=== PATIENT | female | born 1935 | race Caucasian/White ===

== ENCOUNTER 2018-09-28 19:10 | Inpatient (IN) | payer MEDICARE, MEDICAID ==
[~2018-09-28] VITALS: Ht 162.6 cm; Wt 34.0 kg
[2018-09-28 20:09] LABS: HEMATOCRIT 24.2 % (36.0-48.0); HEMOGLOBIN 7.8 g/dL (12-16); MCH 32.1 pg (26.0-34.0); MCHC 32.2 g/dL (31.0-37.0); MCV 99.6 fL (80.0-100.0); MEAN PLATELET VOLUME 10.1 fL (7.4-10.4); RBC 2.43 10x6/uL (4.00-5.40)
[2018-09-28 20:11] LABS: PLATELET COUNT 154 10x3/uL (130-400); WBC 1.2 10x3/uL (4.8-10.8)
--- NOTE | 2018-09-28 20:11 | NUR ---
CRITICAL LAB WBC - 1.2. ERP INFORMED
[2018-09-28 20:25] LABS: INR 1.15 (0.85-1.17); PROTIME 14.2 SECONDS (11.6-15.0)
[2018-09-28 20:26] LABS: APTT 41.1 SECONDS (22.8-39.4)
[2018-09-28 20:33] LABS: ALKALINE PHOSPHATASE 118 U/L (46-116); ALT (SGPT) 13 U/L (10-68); BILIRUBIN - TOTAL 0.53 mg/dL (0.2-1.3); CALC OSMOLALITY 290 mosm/kg (275-300); CALCIUM 8.6 mg/dL (8.5-10.1); CARBON DIOXIDE 25.3 mmol/L (21.0-32.0); CHLORIDE - SERUM 104 mmol/L (98-107); CREATININE - SERUM 1.2 mg/dL (0.6-1.3); GLUCOSE 119 mg/dL (74-106); POTASSIUM - SERUM 3.4 mmol/L (3.5-5.1); PROTEIN - SERUM 6.5 g/dL (6.4-8.2); SODIUM 142 mmol/L (136-145); UREA NITROGEN 33 mg/dL (7-18); eGFR NON AFRICAN AMERICAN 46 mL/min (90-120)
[2018-09-28 20:34] LABS: LYMPHOCYTES 14 % (15-50); MONOCYTES 20 % (2-11); NEUTROPHILS 66 % (40-80); PLATELET ESTIMATE NORMAL; POLYCHROMASIA OCC
[2018-09-28 20:35] LABS: POIKILOCYTOSIS 1+; ROULEAUX 1+; TEAR DROP CELLS OCC
[2018-09-28 20:49] LABS: CKMB 0.9 U/L (0.0-3.6); CREATINE KINASE 27 UL (21-215); LIPASE 96 U/L (73-393); PRO BNP 5371 pg/mL (0-450); THYROID STIMULATING HORMONE 0.49 uIU/mL (0.36-3.74)
[2018-09-28 20:54] LABS: TROPONIN-I < 0.017 ng/mL (0.000-0.060)
--- NOTE | 2018-09-28 21:00 | NUR ---
IV FLUID LR BEGAN- BOLUS. UNABLE TO SCAN PATIENT. IN AND OUT URINE OBTAINED AND SENT TO LAB.
[2018-09-28 21:23] LABS: APPEARANCE CLEAR (CLEAR); BILIRUBIN NEGATIVE (NEGATIVE); COLOR YELLOW (YELLOW); GLUCOSE NEGATIVE (NEGATIVE); KETONE NEGATIVE (NEGATIVE); NITRITE NEGATIVE (NEGATIVE); PROTEIN TRACE mg/dL (NEGATIVE); SPECIFIC GRAVITY 1.015 (1.005-1.020); UROBILINOGEN NORMAL (NORMAL)
[2018-09-28 21:25] LABS: BACTERIA FEW /hpf (NONE SEEN); EPITHELIAL CELLS 0-5 /hpf (0-5); RED CELLS - URINE 0-5 /hpf (0-5); WHITE CELLS - URINE OCC /hpf (0-5)
--- NOTE | 2018-09-28 21:29 | NUR ---
IV OF LR BOLUS CON'T ON ADMISSION. REPORT TO [facility] ON MED 3.
--- NOTE | 2018-09-28 21:45 | NUR ---
PT ARRIVE TO M3 FROM ER WITH HOSPITAL STAFF AND FAMILY MEMBERS, PT ALERT AND ORIENTED, CALL LIGHT IN REACH.
[2018-09-28] MEDS ORDERED: NAMENDA10 MG PO (21:51)
[2018-09-28] MEDS ORDERED: DONEPEZIL HCL10 MG PO (21:52)
[2018-09-28] MEDS ORDERED: FOLIC ACID0.8 MG PO (21:54)
[2018-09-28] MEDS ORDERED: MELATONIN5 MG PO (21:55)
[2018-09-28] MEDS ORDERED: TREXALL5 MG PO (21:56)
[2018-09-28] MEDS ORDERED: ACETAMINOPHEN500 M1 PO (21:58)
[2018-09-28] MEDS ORDERED: MULTI-DAY VITAM1 TAB PO (21:59)
[2018-09-28] MEDS ORDERED: CITRACAL + D E1 EACH PO (22:00)
--- NOTE | 2018-09-28 22:15 | NUR ---
ROUNDING ON THE PATIENT, PATIENT IS RESTING IN THE BED, FAMILY AT THE BEDSIDE, PATIENT CONFUSED AND UNABLE TO USE CALL LIGHT, RICHIE ALARM PLACED AND ON AT THIS TIME, WILL CONTINUE WITH FREQUENT ROUNDING.
--- NOTE | 2018-09-28 23:56 | NUR ---
1 UNITS OF BLOOD ADMINISTERED BY TOD PIEDRA ORDERED.
[2018-09-29 02:31] VITALS: BP 111/75
--- NOTE | 2018-09-29 03:10 | NUR ---
REST QUIETLY IN BED, FAMILY MEMBERS STAY AT BEDSIDE. CALL LIGHT IN REACH.
--- NOTE | 2018-09-29 07:06 | MORECARE ---
CASE MANAGEMENT DISCHARGE SUMMARY PATIENT: FEDE ATKINSON UNIT: [id number] ADM DATE: 09/28/18 AGE: 83 : 37 SEX: F ROOM/BED: D.[facility]– [place]6 AUTHOR: RAYSA PRINCE PHYSICIAN: REFERRING PHYSICIAN: TANI ANN MD DATE OF SERVICE: 09/29/18 Discharge Plan Patient Name: FEDE ATKINSON Facility: [facility]:[place] : 1935 Planned Disposition: Home Anticipated Discharge Date: 10/03/18 Discharge Date: Expected LOS: 5 Initial Reviewer: [email or web address] Initial Review Date: 09/29/2018 Generated: 09/29/18 8:06 am Patient Name: FEDE ATKINSON Page 06685 at 0706 All edits/amendments must be made on the electronic document DICTATION DATE: 09/29/18704 DIGITAL PRODUCT MANAGER: KAMLA 09/29/18704 RPT#: [id number] DC DATE: STATUS: ADM IN [facility] [address] [place] [address] END OF REPORT
--- NOTE | 2018-09-29 07:13 | MORECARE ---
CASE MANAGEMENT DISCHARGE SUMMARY PATIENT: FEDE ATKINSON UNIT: [id number] ADM DATE: 09/28/18 AGE: 83 : 37 SEX: F ROOM/BED: D.1206 AUTHOR: RAYSA PRINCE PHYSICIAN: REFERRING PHYSICIAN: TANI ANN MD DATE OF SERVICE: 09/29/18 Discharge Plan Patient Name: FEDE ATKINSON Facility: [facility]:[place] : 1935 Planned Disposition: Home Anticipated Discharge Date: 10/03/18 Discharge Date: Expected LOS: 5 Initial Reviewer: [email or web address] Initial Review Date: 09/29/2018 Generated: 09/29/18 8:13 am Comments DCP- Discharge Planning Updated by [email or web address]: Margie Waldron on 09/29/18 6:[address] Patient Name: FEDE ATKINSON Admission Status: ER Accout number: [id number] Admission Date: 09-28-2018 : 1935 Admission Diagnosis: Attending: TANI ANN Current LOS: 1 Anticipated DC Date: 10-03-2018 Planned Disposition: Home Primary Insurance: [employer] CHOICE PPO MCR [employer] Discharge Planning Comments: CM SPOKE WITH PATIENTS GRANDDAUGHTER (NORRIS) REGARDING D/C NEEDS AND PLANS. PATIENT LIVES WITH HER DAUGHTER (SUJEY WAGGONER) AND SHE OR FAMILY WILL DRIVE PATIENT HOME AT DISCHARGE. PATIENT IS TOTALLY DEPENDENT ON HER FAMILY FOR CARE. SHE HAD BEEN WALKING WITH 1 PERSON ASSIST BUT CANNOT AT THIS TIME. PATIENT HAS A BS COMMODE AND SHOWER CHAIR AT HOME. PATIENTS PCP IS DR. MCBRIDE AND USES [facility] ON [address] . FAMILY IS INTERESTED IN HOME HEALTH AND CM GAVE GRANDDAUGHTER PACKET OF CHOICES FOR HOME HEALTH. GRANDDAUGHTER STATED SHE WANTED HER MOTHER TO DECIDE ON HOME HEALTH AND DID NOT WANT TO SIGN CHOICE FORM AT THIS TIME. CM WILL CONTINUE TO FOLLOW PATIENT WITH D/C NEEDS AND PLANS. Solids Control Technician: Margie Waldron DCPIA - Discharge Planning Initial Assessment Updated by [email or web address]: Margie Waldron on 09/29/18 7:07 am * Is the patient Alert and Oriented? No * How many steps to enter\exit or inside your home? * PCP DR. MCBRIDE * Pharmacy [facility] ON * Preadmission Environment Home with Family * ADLs Total Dependent * Equipment Bedside Commode Shower Chair * List name and contact numbers for known caregivers / representatives who currently or will assist patient after discharge: SUJEY WAGGONER (DAUGHTER) [phone] NORRIS WAGGONER (GRANDDAUGHTER) * Verbal permission to speak to the caregivers and representatives has been obtained from the patient. Yes * Community resources currently utilized None * Additional services required to return to the preadmission environment? Yes * Can the patient safely return to the preadmission environment? Yes * Has this patient been hospitalized within the prior 30 days at any hospital? No Last DP export: 09/29/18 6:06 a Patient Name: FEDE ATKINSON Page 36747 at 0713 All edits/amendments must be made on the electronic document DICTATION DATE: 09/29/18711 KITCHEN HELP HANDYMAN: KAMLA 09/29/18711 RPT#: [id number] DC DATE: STATUS: ADM IN [facility] [address] [place] [address] END OF REPORT
--- NOTE | 2018-09-29 07:19 | MORECARE ---
CASE MANAGEMENT DISCHARGE SUMMARY PATIENT: FEDE ATKINSON UNIT: [id number] ADM DATE: 09/28/18 AGE: 83 : 37 SEX: F ROOM/BED: D.1206 AUTHOR: RAYSA PRINCE PHYSICIAN: REFERRING PHYSICIAN: TANI ANN MD DATE OF SERVICE: 09/29/18 Discharge Plan Patient Name: FEDE ATKINSON Facility: [facility]:[place] : 1935 Planned Disposition: Home Anticipated Discharge Date: 10/03/18 Discharge Date: Expected LOS: 5 Initial Reviewer: [email or web address] Initial Review Date: 09/29/2018 Generated: 09/29/18 8:19 am Comments DCP- Discharge Planning Updated by [email or web address]: Margie Waldron on 09/29/18 6:[address] Patient Name: FEDE ATKINSON Admission Status: ER Accout number: [id number] Admission Date: 09-28-2018 : 1935 Admission Diagnosis: Attending: TANI ANN Current LOS: 1 Anticipated DC Date: 10-03-2018 Planned Disposition: Home Primary Insurance: [employer] CHOICE PPO MCR [employer] Discharge Planning Comments: CM SPOKE WITH PATIENTS GRANDDAUGHTER (NORRIS) REGARDING D/C NEEDS AND PLANS. PATIENT LIVES WITH HER DAUGHTER (SUJEY WAGGONER) AND SHE OR FAMILY WILL DRIVE PATIENT HOME AT DISCHARGE. PATIENT IS TOTALLY DEPENDENT ON HER FAMILY FOR CARE. SHE HAD BEEN WALKING WITH 1 PERSON ASSIST BUT CANNOT AT THIS TIME. PATIENT HAS A BS COMMODE AND SHOWER CHAIR AT HOME. PATIENTS PCP IS DR. MCBRIDE AND USES [facility] ON [address] . FAMILY IS INTERESTED IN HOME HEALTH AND CM GAVE GRANDDAUGHTER PACKET OF CHOICES FOR HOME HEALTH. GRANDDAUGHTER STATED SHE WANTED HER MOTHER TO DECIDE ON HOME HEALTH AND DID NOT WANT TO SIGN CHOICE FORM AT THIS TIME. CM WILL CONTINUE TO FOLLOW PATIENT WITH D/C NEEDS AND PLANS. Coffee Grower: Margie Waldron DCPIA - Discharge Planning Initial Assessment Updated by [email or web address]: Margie Waldron on 09/29/18 7:07 am * Is the patient Alert and Oriented? No * How many steps to enter\exit or inside your home? * PCP DR. MCBRIDE * Pharmacy [facility] ON * Preadmission Environment Home with Family * ADLs Total Dependent * Equipment Bedside Commode Shower Chair * List name and contact numbers for known caregivers / representatives who currently or will assist patient after discharge: SUJEY WAGGONER (DAUGHTER) [phone] NORRIS WAGGONER (GRANDDAUGHTER) * Verbal permission to speak to the caregivers and representatives has been obtained from the patient. Yes * Community resources currently utilized None * Additional services required to return to the preadmission environment? Yes * Can the patient safely return to the preadmission environment? Yes * Has this patient been hospitalized within the prior 30 days at any hospital? No Last DP export: 09/29/18 6:13 a Patient Name: FEDE ATKINSON Page 48401 at 0719 All edits/amendments must be made on the electronic document DICTATION DATE: 09/29/18718 HOUSE NURSE: KAMLA 09/29/18718 RPT#: [id number] DC DATE: STATUS: ADM IN [facility] [address] [place] [address] END OF REPORT
--- NOTE | 2018-09-29 07:45 | NUR ---
REPORT RECEIVED. WILL CONTINUE WITH POC. PT CURRENTLY LYING SEMI FOWLERS. CALL LIGHT W/I REACH. PT IS AA AND SLOW TO RESPOND. FAMILY AT BEDSIDE. RR EVEN AND UNLABORED ON 3L 02. NS INFUSING @KVO VIA R.AC PIV. PT DOES RESPOND APPROPRIATELY TO QUESTIONS BUT THE FAMILY ANSWERS FOR THE PATIENT AND DOES NOT ALLOW THE PATIENT TO FULLY ANSWER THE QUESTION. PT IS NOT CONFUSED. WILL CTM.
[2018-09-29 08:00] VITALS: BP 146/63
--- NOTE | 2018-09-29 11:41 | NUR ---
Pt admitted last night through ER. She is very thin and frail. On lower back (midline bony prominence) her skin is red and nonblanchable. Redness extends for approximately 6cm. This area was covered and protected with Mepilex border gauze. Coccyx has a stage 2 pressure injury measuring 2cm x 2cm. It is being protected with mepilex dressing (foam). Bilateral heels are red and slow to evangelina. Right heel has a small scab. Recommendations: -Turn/reposition every 2 hours (pt can assist) -Keep bony prominences protected and assess frequently due to very high risk of breakdown. -Keep heels bridged (floating off of the mattress and pillow) -Air overlay mattress. -Calmoseptine cream to perineal area after personal care to protect skin due to incontinence. -Assess skin every shift and with each incontinent episode. Wound care continues to monitor.
[2018-09-29 12:00] VITALS: BP 125/47
[2018-09-29 13:16] VITALS: BMI 12.8
[2018-09-29 16:00] VITALS: BP 123/54
[2018-09-29 16:04] VITALS: Ht 162.6 cm; Wt 34.0 kg
--- NOTE | 2018-09-29 16:29 | NUR ---
CONFUSED. RESTING IN BED. DAUGHTER AT BEDSIDE. MED CODE SIGNED BY . ORAL TEMP 100.9. 3 BLANKETS REMOVED TO DECREASE TEMP. ONE SHEET LEFT ON TO PREVENT CHILLS. AGREE WITH BIZTALK DEVELOPER ASSESSMENT. JASPREET GRACE RESUMES PLAN OF CARE AND SAFETY PRECAUTIONS.
[2018-09-29 16:32] LABS: % SATURATION 15 % (15-55); IRON 12 ug/dl (35-150); TOTAL IRON BIND CAPACITY 79 ug/dl (260-445); UNSAT IRON BIND CAPACITY 67 ug/dl (150-375)
[2018-09-29 17:06] LABS: THYROID STIMULATING HORMONE 0.15 uIU/mL (0.36-3.74)
[2018-09-29 19:00] VITALS: BP 127/76
--- NOTE | 2018-09-29 19:46 | NUR ---
PATIENT IS RESTING IN HER BED WITH FAMILY MEMBER AT BEDSIDE. BED IS DOWN LOW WITH SIDE RAILS UP X2. CALL LIGHT IS IN REACH.
[2018-09-30 01:20] VITALS: BP 143/71
[2018-09-30 05:15] VITALS: BP 151/77
[2018-09-30 07:20] LABS: ALBUMIN 1.6 g/dL (3.4-5.0); ANION GAP 12.3 mmol/L (8-16); BILIRUBIN - TOTAL 0.66 mg/dL (0.2-1.3); CALCIUM 7.9 mg/dL (8.5-10.1); CREATININE - SERUM 0.9 mg/dL (0.6-1.3); POTASSIUM - SERUM 3.3 mmol/L (3.5-5.1); PROTEIN - SERUM 5.2 g/dL (6.4-8.2)
[2018-09-30 07:54] LABS: BASOPHILS 0.9 % (0-2); EOSINOPHILS 0.9 % (0-7); HEMATOCRIT 25.2 % (36.0-48.0); HEMOGLOBIN 8.4 g/dL (12-16); LYMPHOCYTES 37.2 % (15-50); MCH 31.2 pg (26.0-34.0); MCHC 33.3 g/dL (31.0-37.0); MEAN PLATELET VOLUME 11.9 fL (7.4-10.4); MONOCYTES 32.7 % (2-11); NEUTROPHILS 28.3 % (40-80); RBC 2.69 10x6/uL (4.00-5.40); RDW 17.4 % (11.5-14.5)
[2018-09-30 07:55] LABS: MCV 93.7 fL (80.0-100.0); PLATELET COUNT 108 10x3/uL (130-400); WBC 1.1 10x3/uL (4.8-10.8)
[2018-09-30 08:31] VITALS: BP 150/102
--- NOTE | 2018-09-30 10:03 | NUR ---
CONFUSED, ALERT. SITTING UP IN BED. FAMILY AT BEDSIDE. INITIATE CARDIZEM 20mg BOLUS IV ORDERED. BP-121/64, HR-162 UNCONTROLLED AFIB. ADMINISTER BOLUS PER PROTOCOL.
--- NOTE | 2018-09-30 10:13 | NUR ---
10mg CARDIZEM BOLUS COMPLETE. HOLD REMAINING 10MG BOLUS DUE TO DROP IN BP. CURRENT BP-91/55. BEGINNING BP-120/64. HR-124 UNCONTROLLED AFIB. CONTINUE TO MONITOR. FAMILY AT BEDSIDE. DENIES ANY OTHER NEEDS AT THIS TIME. CONTINUE PLAN OF CARE AND SAFETY PRECAUTIONS.
--- NOTE | 2018-09-30 10:46 | NUR ---
BP-112/64, HR-124 UNCONTROLLED AFIB. CONTINUE REMAINING CARDIZEM BOLUS 10mg IV.
--- NOTE | 2018-09-30 10:53 | NUR ---
SITTING UP IN BED. DAUGHTER AT BEDSIDE. CARDIZEM BOLUS COMPLETE. HR-118 UNCONTROLLED AFIB. BP-110/57. JASPREET BARCENAS RESUMES PLAN OF CARE AND SAFETY PRECAUTIONS.
--- NOTE | 2018-09-30 12:30 | NUR ---
TRANSFER FROM [facility] FOR [facility] GTT. WILL CONT. PLAN OF CARE.
[2018-09-30 12:42] VITALS: BP 102/50
[2018-09-30 15:41] VITALS: BP 96/54
--- NOTE | 2018-09-30 19:12 | NUR ---
RESUMING PATIENT CARE. PATIENT IS ALERT AND ORIENTED. RESTING COMFORTABLY IN BED. RESPIRATIONS ARE EVEN AND UNLABORED. FAMILY AT BEDSIDE. NO S/S OF DISTRESS. NO C/O PAIN. CALL LIGHT WITHIN REACH. WILL CPOC.
[2018-09-30 20:00] VITALS: BP 90/59
[2018-10-01] VITALS: BP 111/54
--- NOTE | 2018-10-01 01:44 | NUR ---
PATIENT RESTING COMFORTABLY IN BED. RESPIRATIONS ARE EVEN AND UNLABORED. NO S/S OF DISTRESS. NO C/O PAIN. CALL LIGHT WITHIN REACH. WILL CPOC.
[2018-10-01 04:00] VITALS: BP 98/64
[2018-10-01 06:58] LABS: ALBUMIN 1.3 g/dL (3.4-5.0); ANION GAP 16.4 mmol/L (8-16); BILIRUBIN - TOTAL 0.5 mg/dL (0.2-1.3); CALCIUM 7.6 mg/dL (8.5-10.1); CARBON DIOXIDE 20.7 mmol/L (21.0-32.0); CREATININE - SERUM 0.8 mg/dL (0.6-1.3); POTASSIUM - SERUM 3.1 mmol/L (3.5-5.1); PROTEIN - SERUM 4.9 g/dL (6.4-8.2)
[2018-10-01 07:04] LABS: HEMATOCRIT 26.2 % (36.0-48.0); HEMOGLOBIN 8.7 g/dL (12-16); MCH 31.2 pg (26.0-34.0); MCHC 33.2 g/dL (31.0-37.0); MCV 93.9 fL (80.0-100.0); MEAN PLATELET VOLUME 11.9 fL (7.4-10.4); PLATELET COUNT 195 10x3/uL (130-400); RBC 2.79 10x6/uL (4.00-5.40); RDW 17.7 % (11.5-14.5); WBC 3.6 10x3/uL (4.8-10.8)
[2018-10-01 07:58] LABS: ANISOCYTOSIS 1+; LYMPHOCYTES 37 % (15-50); MONOCYTES 32 % (2-11); NEUTROPHILS 17 % (40-80); PLATELET ESTIMATE NORMAL; SPHEROCYTES OCC
[2018-10-01 07:59] LABS: POIKILOCYTOSIS OCC
[2018-10-01 08:15] VITALS: BP 100/48
--- NOTE | 2018-10-01 09:11 | NUR ---
LEAVING TO X-RAY BY BED FOR CT BONE BIOPSY. WILL CONT. PLAN OF CARE.
--- NOTE | 2018-10-01 10:39 | CN ---
PATIENT NAME:FEDE ATKINSON MEDICAL RECORD: [id number] : [birth year] LOCATION:[place] D.2114 ADMIT DATE: 09/28/18 ACCOUNT: [id number] CONSULTING PHYSICIAN: MELISSA CORTÉS MD REFERRING PHYSICIAN: TANI ANN MD DATE OF CONSULTATION: 09/30/2018 DIAGNOSES: 1. Atrial fibrillation. 2. Tachycardia. 3. Failure to thrive. 4. Anemia. 5. Leukopenia. HISTORY: Mrs. Atkinson presents with failure to thrive. She has no cardiac history. She was found to be markedly anemic, possibly GI bleed as she has had black tarry stools prior to admission. Found to be leukopenic. Bone marrow biopsy was planned; however, it is on hold. She is in atrial fibrillation with rapid ventricular response. It appears that she has been in atrial fibrillation. She was admitted. She has no cardiac history. PHYSICAL EXAMINATION: GENERAL APPEARANCE: Well-nourished, well-developed, appears stated age. Level of distress, comfortable. PSYCHIATRIC: Mental status, alert, normal affect. Orientation, oriented to time, place and person. EYES: Lids and conjunctiva, noninjected. No discharge, no pallor. ENT: Lips, teeth, gums, normal dentition. Oropharynx, no cyanosis, no pallor. NECK: Carotid arteries, bilateral normal upstroke, no bruits, no thrills. JUGULAR VEINS: No jugular venous pressure or distention. CERVICAL LYMPH NODES: Nontender, nonenlarged. THYROID: Not enlarged. Nontender. No nodules. LUNGS: Respiratory effort, unlabored. CHEST: Normal curvature. No thoracic deformity. No chest wall tenderness. Percussion, resonant. Auscultation, clear. No wheezes, no rales, no rhonchi. CARDIOVASCULAR: Precordial exam, nondisplaced. No heaves or pericardial thrills. Rate and rhythm, regular. Heart sounds, normal S1, normal S2. No S3, no gallop, no rub. Systolic murmur, not heard. Diastolic murmur, not heard. EXTREMITIES: No cyanosis, no edema. Peripheral pulses, full and equal in all extremities, except as noted. No bruits appreciated. ABDOMEN: Soft, nondistended. Normal aorta. No bruit. Nontender. No masses. Liver, nontender, no hepatomegaly. Spleen, nontender, no splenomegaly. MUSCULOSKELETAL: No joint tenderness. No joint swelling. No erythema. NEUROLOGICAL: Normal gait, normal strength, normal tone. SKIN: Warm and dry. IMPRESSION: At this time, she is not taking anything p.o. We will use IV Cardizem to slow her rate. Continue the IV Cardizem until she takes p.o. and then we will consider switching to sotalol. She is clearly not a candidate for any anticoagulation. We will get an echocardiogram. Other than that, no other cardiac workup or treatment necessary. TRANSINT:[id number] Voice Confirmation ID: [id number] DOCUMENT ID: [id number] CONSULT REPORT [id number] FEDE ATKINSON, MELISSA DIA at 1039 CC: [id number] DICTATION DATE: 09/30/18 0949 DOG CONTROL OFFICER: 09/30/18 1007 [facility] IN [place] [id number] [place] [address]
--- NOTE | 2018-10-01 11:16 | NUR ---
BACK FROM BIOPSY. 02 SATS 77% ON 5L NC. RT NOTIFIED. UPPED 02 TO 15% OXIMIZER. UD GIVEN. 02 SATS INCREASED TO 93%. WILL CONT. TO MONITOR.
--- NOTE | 2018-10-01 12:10 | NUR ---
DOTTY RUSSO NOTIFIED OF 02 SATS ON 15% HIGH FLOW. NEW ORDERS GIVEN.
[2018-10-01 12:18] VITALS: BP 96/61
--- NOTE | 2018-10-01 15:00 | NUR ---
CONSENTS SIGNED BY DAUGHTER FOR EGD.
[2018-10-01 15:27] VITALS: BP 101/52
--- NOTE | 2018-10-01 19:45 | NUR ---
RESUMING PATIENT CARE. PATIENT IS ALERT AND ORIENTED. RESPIRATIONS ARE EVEN AND UNLABORED. NO S/S OF DISTRESS. NO C/O PAIN. DENIES NEEDS. CALL LIGHT WITHIN REACH. WILL CPOC.
[2018-10-01 20:00] VITALS: BP 145/87
--- NOTE | 2018-10-02 01:39 | NUR ---
PATIENT RESTING COMFORTABLY IN BED. RESPIRATIONS ARE EVEN AND UNLABORED. NO S/S OF DISTRESS. NO C/O PAIN. CALL LIGHT WITHIN REACH. WILL CPOC.
[2018-10-02 04:00] VITALS: BP 109/57
[2018-10-02 04:46] LABS: INR 1.3 (0.85-1.17); PROTIME 15.6 SECONDS (11.6-15.0)
[2018-10-02 04:53] LABS: HEMATOCRIT 24.6 % (36.0-48.0); HEMOGLOBIN 8.1 g/dL (12-16); MCH 31.3 pg (26.0-34.0); MCHC 32.9 g/dL (31.0-37.0); MEAN PLATELET VOLUME 11.9 fL (7.4-10.4); PLATELET COUNT 305 10x3/uL (130-400); RBC 2.59 10x6/uL (4.00-5.40); RDW 18.1 % (11.5-14.5)
[2018-10-02 05:07] LABS: ALBUMIN 1.3 g/dL (3.4-5.0); ANION GAP 16.5 mmol/L (8-16); BILIRUBIN - TOTAL 0.33 mg/dL (0.2-1.3); CALCIUM 7.3 mg/dL (8.5-10.1); CARBON DIOXIDE 21.4 mmol/L (21.0-32.0); POTASSIUM - SERUM 4.9 mmol/L (3.5-5.1); PROTEIN - SERUM 4.4 g/dL (6.4-8.2)
[2018-10-02 05:08] LABS: CREATININE - SERUM 1.1 mg/dL (0.6-1.3)
[2018-10-02 08:15] VITALS: BP 115/59
--- NOTE | 2018-10-02 09:11 | NUR ---
DAUGHTER AND DR. CLAIRE DOES NOT WANT HER TO HAVE EGD TODAY DO TO HER REPRITORY STATUS. GI LAB NOTIFIED AND DR. SIMMONS PAGED.
--- NOTE | 2018-10-02 09:18 | NUR ---
DR. SIMMONS NOTIFIED. EGD CANCELLED.
[2018-10-02 10:26] LABS: WBC 22.4 10x3/uL (4.8-10.8)
[2018-10-02 12:06] LABS: BURR CELLS OCC; CRENATED CELLS OCC; PLATELET ESTIMATE NORMAL; TOXIC GRANULATION OCC; VACUOLES OCC
[2018-10-02 12:07] LABS: ANISOCYTOSIS OCC
--- NOTE | 2018-10-02 12:25 | NUR ---
OT NOTE: PT PERFORMED MUCH BETTER TODAY. ABLE TO SIT UP ON EOB WITH MAX ASSIST; MAX ASSIST TO MAINTAIN STATIC SITTING; MAX ASSIST TO HOLD HEAD UP; MAX ASSIST FOR ADLS AND GROOMING; A/AROM TO B UES(1145/1206) RMOANA ABBASI, OTR/L
--- NOTE | 2018-10-02 12:30 | NUR ---
02 SATS DROPPED TO 76% ON 15L HIGH FLOW. RAPID RESPONCE CALLED. ABGS AND UP GIVEN.
[2018-10-02 12:58] LABS: PATH REVIEW PERIPHERAL SMEAR REVIEWED
--- NOTE | 2018-10-02 13:00 | NUR ---
BIPAP ON. 02 SATS UP. WILL CONT. PLAN OF CARE.
[2018-10-02 13:02] LABS: LYMPHOCYTES 8 % (15-50)
[2018-10-02 13:03] LABS: MONOCYTES 16 % (2-11)
[2018-10-02 13:05] LABS: NEUTROPHILS 4 % (40-80)
[2018-10-02 13:09] VITALS: BP 100/42
[2018-10-02 13:36] LABS: HEMATOCRIT 27.4 % (36.0-48.0); HEMOGLOBIN 8.7 g/dL (12-16); MCH 31.1 pg (26.0-34.0); MCHC 31.8 g/dL (31.0-37.0); MCV 97.9 fL (80.0-100.0); MEAN PLATELET VOLUME 11.6 fL (7.4-10.4); PLATELET COUNT 281 10x3/uL (130-400); RDW 18.4 % (11.5-14.5); WBC 38.8 10x3/uL (4.8-10.8)
--- NOTE | 2018-10-02 14:00 | NUR ---
Nutrition follow-up: Pt has been NPO for several meals 2/2 bone marrow biopsy Diet advanced back to regular as tolerated PO intake 100% of some meals; however, pt with 15 L of O2 and rapid response called today. labs reviewed Wt: 74# Will continue to offer food choices and honor all food preferences. Will offer nutritional supplements. RDN following.
[2018-10-02 14:03] LABS: LYMPHOCYTES 8 % (15-50); MONOCYTES 10 % (2-11); NEUTROPHILS 10 % (40-80); TOXIC GRANULATION OCC
[2018-10-02 14:04] LABS: ANISOCYTOSIS OCC; CRENATED CELLS OCC
[2018-10-02 14:05] LABS: PLATELET ESTIMATE NORMAL; ROULEAUX OCC
--- NOTE | 2018-10-02 14:37 | NUR ---
DR. CLAIRE NOTIFIED OF INCREASED WBCS.
--- NOTE | 2018-10-02 16:09 | NUR ---
OT NOTE: PT COMPLETED BED MOB AND EOB SITTING WITH MAX A. PT COMPLETED HAIR GROOMING WITH MAX A. 435/916 THANK YOU, IVAN RIBERA
--- NOTE | 2018-10-02 19:30 | NUR ---
RESUMING PATIENT CARE. PATIENT RESTING COMFORTABLY IN BED. PATIENT CURRENTLY ON BIPAP. RESPIRATIONS OBSERVED. NO S/S OF DISTRESS. FAMILY AT BEDSIDE. CALL LIGHT WITHIN REACH. WILL CPOC.
[2018-10-02 20:05] VITALS: BP 110/59
--- NOTE | 2018-10-02 21:20 | NUR ---
REMOVED BIPAP FOR NURSES MED ADMINISTRATION. ATTEMPT TO TITRATE FI02 TO ACHIEVE SPO2 OF 93. HFNC 9L CURRENTLY ON AND SPO2 HOLDING AT 92. BILATERAL EXP CRACKLES TO ANTERIOR MENESES OF AUSCULATATION ZERO CYANOSIS NO IMMEDIATE S/S OF RESP DISTRESS AT THIS TIME. EQUALATERAL EXCURSION WILL CONTINUE TO MONITOR
--- NOTE | 2018-10-02 21:47 | NUR ---
RESPIRATORY THERAPIST GAVE PATIENT A BREAK FROM THE BIPAP. PATIENT ON 9L HIGH FLOW NC. PATIENT O2 STAT AT 92%.
--- NOTE | 2018-10-02 21:55 | NUR ---
PT BACK ON BIPAP DUE TO DECREASING SPO2 OF 88
--- NOTE | 2018-10-03 00:17 | NUR ---
PT PULLING AT BIPAP AND IV, CALLED DOTTY DUE TO PT NOT LEAVING BIPAP OR NC ON AND PULLING AT IV LINES. FAMILY IN ROOM FOR ASSIST AND STILL CANNOT KEEP OXYGEN DEVICES ON. DOTTY STATED TO CALL DAKOTAH SINCE IT IS RELATED TO A RESP ISSUE. CALLED DAKOTAH AND SPOKE WITH HIM. FAMILY MEMBER TYLER SPOKE WITH DAKOTAH WELL. ORDER FOR HALDOL 5MG IV Q6H PRN FOR AGGITAION OBTAINED. CALLED SQUEEGEE OPERATOR FOR MEDICATION. WILL CPOC
--- NOTE | 2018-10-03 01:55 | NUR ---
PATIENT RESTING COMFORTABLY. PATIENT NO LONGER ATTEMPTING TO REMOVE BIPAP MASK. O2 STAT 93%. FAMILY AT BEDSIDE. CALL LIGHT WITHIN REACH. WILL CPOC.
[2018-10-03 04:00] VITALS: BP 114/54
--- NOTE | 2018-10-03 04:50 | NUR ---
PATIENT CONTINUES TO REST COMFORTABLY IN BED. PATIENT REMAINS ON BIPAP. O2 STAT. 92%. NO S/S OF DISTRESS. CALL LIGHT WITHIN REACH. FAMILY AT BEDSIDE. WILL CPOC.
[2018-10-03 05:30] LABS: HEMATOCRIT 23.4 % (36.0-48.0); HEMOGLOBIN 7.8 g/dL (12-16); MCHC 33.3 g/dL (31.0-37.0); MCV 92.9 fL (80.0-100.0); MEAN PLATELET VOLUME 12.2 fL (7.4-10.4); PLATELET COUNT 235 10x3/uL (130-400); RBC 2.52 10x6/uL (4.00-5.40); RDW 17.9 % (11.5-14.5); WBC 43.9 10x3/uL (4.8-10.8)
[2018-10-03 07:28] VITALS: BP 114/54
[2018-10-03 07:42] LABS: ALBUMIN 1.1 g/dL (3.4-5.0); ANION GAP 16.8 mmol/L (8-16); BILIRUBIN - TOTAL 0.21 mg/dL (0.2-1.3); CALCIUM 7.4 mg/dL (8.5-10.1); CARBON DIOXIDE 17.6 mmol/L (21.0-32.0); CREATININE - SERUM 1.3 mg/dL (0.6-1.3); POTASSIUM - SERUM 4.4 mmol/L (3.5-5.1); PROTEIN - SERUM 4.7 g/dL (6.4-8.2)
[2018-10-03 07:56] VITALS: BP 111/67
[2018-10-03 09:36] LABS: EOSINOPHILS 1 % (0-7); LYMPHOCYTES 5 % (15-50); MONOCYTES 18 % (2-11); NEUTROPHILS 24 % (40-80); PLATELET ESTIMATE NORMAL; SMUDGE CELLS OCC; TOXIC GRANULATION OCC; VACUOLES OCC
[2018-10-03 09:37] LABS: HYPOCHROMASIA OCC; ROULEAUX OCC
[2018-10-03 12:20] VITALS: BP 106/62
--- NOTE | 2018-10-03 13:15 | NUR ---
KUSSMAL BREATHING NOTED. REPOSITIONED IN BED. RAPID RESPONCE AND MED CODE CALLED. FAMILY WANTS NO INTUBATION AND JUST TO LET HE GO COMFORTABLY. CODE STOPPED AND NEW ORDERS GIVEN.
--- NOTE | 2018-10-03 13:27 | NUR ---
NO RESP. NO PULSE. PRONOUNCED BY DR. ARELLANO. AT BS.
--- NOTE | 2018-10-03 13:35 | NUR ---
NAVID BRADLEY DUE TO SEPSIS.
--- NOTE | 2018-10-03 14:11 | NUR ---
HOME NOTIFIED OF DECIECED.
--- NOTE | 2018-10-03 15:02 | NUR ---
LEAVING HOSPITOL TO HOME.
--- NOTE | 2018-10-06 08:58 | MORECARE ---
CASE MANAGEMENT DISCHARGE SUMMARY PATIENT: FEDE ATKINSON UNIT: [id number] ADM DATE: 09/28/18 AGE: 83 : 37 SEX: F ROOM/BED: D.8993 AUTHOR: RAYSA PRINCE PHYSICIAN: REFERRING PHYSICIAN: TANI ANN MD DATE OF SERVICE: 10/06/18 Discharge Plan Patient Name: FEDE ATKINSON Facility: [facility]:[place] : 1935 Planned Disposition: Home Anticipated Discharge Date: 10/03/18 Discharge Date: 10/03/2018 Expected LOS: 5 Initial Reviewer: [email or web address] Initial Review Date: 09/29/2018 Generated: 10/06/18 9:58 am Comments DCP- Discharge Planning Updated by [email or web address]: Margie Waldron on 09/29/18 6:[address] Patient Name: FEDE ATKINSON Admission Status: ER Accout number: [id number] Admission Date: 09-28-2018 : 1935 Admission Diagnosis: Attending: TANI ANN Current LOS: 1 Anticipated DC Date: 10-03-2018 Planned Disposition: Home Primary Insurance: HUMANA CHOICE PPO MCR [facility] Discharge Planning Comments: CM SPOKE WITH PATIENTS GRANDDAUGHTER (NORRIS) REGARDING D/C NEEDS AND PLANS. PATIENT LIVES WITH HER DAUGHTER (SUJEY WAGGONER) AND SHE OR FAMILY WILL DRIVE PATIENT HOME AT DISCHARGE. PATIENT IS TOTALLY DEPENDENT ON HER FAMILY FOR CARE. SHE HAD BEEN WALKING WITH 1 PERSON ASSIST BUT CANNOT AT THIS TIME. PATIENT HAS A BS COMMODE AND SHOWER CHAIR AT HOME. PATIENTS PCP IS DR. MCBRIDE AND USES [facility] ON [address] . FAMILY IS INTERESTED IN HOME HEALTH AND CM GAVE GRANDDAUGHTER PACKET OF CHOICES FOR HOME HEALTH. GRANDDAUGHTER STATED SHE WANTED HER MOTHER TO DECIDE ON HOME HEALTH AND DID NOT WANT TO SIGN CHOICE FORM AT THIS TIME. CM WILL CONTINUE TO FOLLOW PATIENT WITH D/C NEEDS AND PLANS. Move Coordinator: Margie Waldron DCPIA - Discharge Planning Initial Assessment Updated by [email or web address]: Margie Waldron on 09/29/18 7:07 am * Is the patient Alert and Oriented? No * How many steps to enter\exit or inside your home? * PCP DR. MCBRIDE * Pharmacy [facility] ON * Preadmission Environment Home with Family * ADLs Total Dependent * Equipment Bedside Commode Shower Chair * List name and contact numbers for known caregivers / representatives who currently or will assist patient after discharge: SUJEY WAGGONER (DAUGHTER) [phone] NORRIS WAGGONER (GRANDDAUGHTER) * Verbal permission to speak to the caregivers and representatives has been obtained from the patient. Yes * Community resources currently utilized None * Additional services required to return to the preadmission environment? Yes * Can the patient safely return to the preadmission environment? Yes * Has this patient been hospitalized within the prior 30 days at any hospital? No Last DP export: 09/29/18 6:19 a Patient Name: FEDE ATKINSON Page 04347 at 0858 All edits/amendments must be made on the electronic document DICTATION DATE: 10/06/18857 CIGARETTE PACKER: KAMLA 10/06/1858 RPT#: [id number] DC DATE:10/03/18 STATUS: DIS IN [facility] [address] [place] [address] END OF REPORT
--- NOTE | 2018-10-10 16:41 | EC ---
PATIENT:FEDE ATKINSON DATE OF SERVICE: 09/28/18 SEX: F MEDICAL RECORD: [id number] DATE OF : [birth year] LOCATION:D.M2 D.211 AGE OF PATIENT: 83 ADMISSION DATE: 09/28/18 REFERRING PHYSICIAN: INTERPRETING PHYSICIAN: MELISSA PADILLA MD ECHOCARDIOGRAM REPORT ECHO CHARGES 4 ECHO COMPLETE Date: 09/30/18 CLINICAL DIAGNOSIS: AFIB ECHOCARDIOGRAPHIC MEASUREMENTS (adult normal given) AC root (d.<3.7cm) 2.9 cm LV Septum d (<1.2 cm> 1.0 cm Valve Excursion 1.2 cm LV Septum (systole) 1.1 cm Left Atria (s.<4.0cm> 3.5 cm LVPW d(<1.2cm) 0.8 cm RV (d.<2.3cm) 3.0 cm LVPW (sytole) 0.9 cm LV diastole(<5.6CM) 4.4 cm MV E-F(>70mm/sec) cm LV systole 3.9 cm LVOT Diameter 1.3 cm MV exc.(>10mm) cm Est.ejection fraction (50-75%) % DOPPLER: LVIT cm/sec A 35 cm/sec E 54. cm/sec LA cm/sec RVSP 29.0 mmHg LVOT 121 cm/sec AOP1/2T m/s Asc. Ao 246 cm/sec RVOT 83 cm/sec RA cm/sec PA 96 cm/sec AV Gradient Peak 24.2 mmHg AV Mean 18.2 mmHg AV Area 1.5 cm MV Gradient Peak 2.3 mmHg MV Mean 1.0 mmHg MV Area cm COMMENTS: Engineering Program Analyst: Nettie CALHOUNYUMIKOMARY [facility] Shredder Tender: 1 Dr. Padilla TAPE# PACS Pericardial Effusion N DATE OF SERVICE: 09/30/2018 PROCEDURE: Echocardiogram. FINDINGS: 1. Left ventricular chamber size is within normal limits. Left ventricular systolic function is normal. Overall ejection fraction estimated at 55%. 2. Left atrium, right atrium and right ventricular chamber sizes are within normal limits. 3. Valvular structures: The tricuspid valve appears to have a flail posterior ECHOCARDIOGRAM REPORT [id number] FEDE ATKINSON leaflet. Remaining valvular structures have normal structure and motion. 4. Doppler interrogation reveals moderate tricuspid regurgitation, no other valvular insufficiency or stenosis. Pulmonary systolic pressure is estimated at 29 mmHg. 5. No evidence of pericardial effusion or left ventricular thrombus. TRANSINT:[id number] Voice Confirmation ID: [id number] DOCUMENT ID: [id number] MELISSA PADILLA MD at 1641 CC: [id number] DICTATION DATE: 10/01/18 1122 POLITICAL ANALYST: 10/01/18 1131 DIS IN 10/03/18 [facility] [address] [place] [id number]
== END 2018-10-03 15:02 | DRG 808 ==
LOC: D.ER 19:10 → D.M3 19:43 → D.EDHOLD 19:43 → D.M2 19:43 → D.M3 20:15 → D.M2 09-30 11:41
PROVIDERS: Family Medicine; Family Medicine Adult Medicine; Internal Medicine Gastroenterology; Internal Medicine Hematology & Oncology; Internal Medicine Pulmonary Disease; Specialist; ADMIT Internal Medicine Nephrology; ATTEND Internal Medicine Nephrology
PROC: 07DR3ZX Extraction of Iliac Bone Marrow, Percutaneous Approach, Diagnostic (ICD-10-PCS; principal; 2018-10-01 09:55)
DX: D61.818 Other pancytopenia (principal); J96.01 Acute respiratory failure with hypoxia; G93.41 Metabolic encephalopathy; Z68.1 Body mass index [BMI] 19.9 or less, adult; N39.0 Urinary tract infection, site not specified; E46 Unspecified protein-calorie malnutrition; R78.81 Bacteremia; R62.7 Adult failure to thrive; D64.9 Anemia, unspecified; F03.90 Unspecified dementia, unspecified severity, without behavioral disturbance, psychotic disturbance, mood disturbance, and anxiety; D46.9 Myelodysplastic syndrome, unspecified; J40 Bronchitis, not specified as acute or chronic; I48.91 Unspecified atrial fibrillation; B95.7 Other staphylococcus as the cause of diseases classified elsewhere